=== PATIENT | male | born 1945 | race Hispanic/Latino ===

== ENCOUNTER 2017-06-03 10:47 | Emergency (ER) | payer MEDICARE ==
[~2017-06-03] VITALS: Ht 154.9 cm; Wt 68.0 kg
--- OUTSIDE RECORDS SUMMARY | 2017-06-03 10:50 | XMS REPORT | Clinical Summary ---
Author [facility] Organization [facility] Address Unknown Phone Unavailable Care Team Providers Care Diagnostic Medical Sonographer Name Role Phone PCP Unavailable Allergies No Known Allergies Current Medications Prescription Sig. Disp. Refills Start End Date Status Date donepezil (ARICEPT) 10 MG Take 10 mg by mouth Active tablet nightly. ondansetron (ZOFRAN-ODT) Take 1 tablet (4 mg 15 tablet 0 01/23/20 4 MG disintegrating total) by mouth every 8 17 17 tablet (eight) hours as needed for Nausea for up to 7 days. Active Problems Not on file Encounters Date Type Specialty Care Team Description 01/22/2017 Orders Only General Internal Medicine 01/21/2017 Emergency Emergency Medicine Jsoe Chowdary, Non- intractable vomiting - MD with nausea, unspecified 01/22/2017 vomiting type (Primary Dx) after 06/02/2016 Social History Tobacco Use Types Packs/Day Years Used Date Never Smoker Alcohol Use Drinks/Week oz/Week Comments No Sex Assigned at Date Recorded Not on file Last Filed Vital Signs Vital Sign Reading Time Taken Blood Pressure 155/68 01/22/2017 7:30 AM MILLING MACHINE SET UP OPERATOR Pulse 65 01/22/2017 7:30 AM MILLING MACHINE SET UP OPERATOR Temperature 36.6 C (97.8 F) 01/21/2017 9:40 PM MILLING MACHINE SET UP OPERATOR Respiratory Rate 18 01/21/2017 9:40 PM MILLING MACHINE SET UP OPERATOR Oxygen Saturation 94% 01/22/2017 7:30 AM MILLING MACHINE SET UP OPERATOR Inhaled Oxygen - - Concentration Weight 68 kg (150 lb) 01/21/2017 9:41 PM MILLING MACHINE SET UP OPERATOR Height - - Body Mass Index 28.36 01/21/2017 9:41 PM MILLING MACHINE SET UP OPERATOR Plan of Treatment Not on file Results * ED ECG Interpretation (01/22/2017 8:45 AM) Narrative Jose Chowdary MD 01/22/20178:45 AM ECG/EKG Interpretation Date/Time: 01/22/2017 1:04 AM Performed by: JOSE CHOWDARY Authorized by: JOSE CHOWDARY The ECG was interpreted by ED physician. The ECG is interpreted as sinus rhythm. Rate is bradycardic. Heart rate is 57 BPM. Abnormal conduction noted: 1st degree. T waves normal. Merrill is normal. Other findings include: LVH. Q-waves are present in lead(s) III, aVF, V5 and V6. * Urinalysis w/Microscopic - Clean Catch (01/22/2017 2:58 AM) Component Value Ref Range Color, UA Yellow Clarity, UA Hazy Specific Fortine, UA 1.016 1.001 - 1.035 pH, UA 8.5 (H) 5.0 - 8.0 Protein, UA 30 mg/dL (A) Negative Glucose, UA Negative Negative Ketones, UA Negative Negative Bilirubin, UA Negative Negative Blood, UA Negative Negative Nitrite, UA Negative Negative Leukocytes, UA Negative Negative Urobilinogen, UA 0.2 0.2 - 1.0 mg/dL RBC, UA 0 /HPF WBC, UA 0 /HPF Amorphous Crystals Moderate Specimen Source Urine, Voided Specimen Performing Laboratory Urine - Urine, [place] [address] * CT brain without IV contrast (01/22/2017 2:42 AM) Specimen Performing Laboratory [employer] Narrative FINAL REPORT CLINICAL HISTORY: Vomiting, elevated blood pressure, confusion COMPARISON: 03/22/2015 Multiple axial images of the brain were performed without IV contrast. This exam was performed according to our departmental dose-optimization program, which includes automated exposure control, adjustment of the mA and/or kV according to patient size and/or use of the iterative reconstruction technique. Intracranial hemorrhage: None. Brain parenchyma: Stable post surgical changes of right craniotomy and underlying right temporal encephalomalacia. Diffuse parenchymal volume loss. Bilateral subcortical and periventricular non-specific white matter hypodensities suggestive of microangiopathy. Ventricles, sulci and basal cisterns: Normal for age. Extra-axial spaces: Normal. Midline shift: None. Visualized vasculature: Normal. Cranium: Stable post craniotomy changes in the right temporoparietal region. Skullbase: No significant findings. Paranasal sinuses: No significant findings. IMPRESSION: No definite acute intracranial abnormality. There is no mass lesion, intracranial hemorrhage or CT evidence of acute stroke. Stable post surgical, microvascular and involutional changes. Please note that CT is insensitive in the detection of acute ischemia. Signed: Sandor Rowland MD Report Verified Date/Time:01/22/2017 02:38:42 Reading Location: [address] Reading Room Procedure Note Interface, External Ris In - 01/22/2017 4:35 AM MILLING MACHINE SET UP OPERATOR FINAL REPORT CLINICAL HISTORY: Vomiting, elevated blood pressure, confusion COMPARISON: 03/22/2015 Multiple axial images of the brain were performed without IV contrast. This exam was performed according to our departmental dose-optimization program, which includes automated exposure control, adjustment of the mA and/or kV according to patient size and/or use of the iterative reconstruction technique. Intracranial hemorrhage: None. Brain parenchyma: Stable post surgical changes of right craniotomy and underlying right temporal encephalomalacia. Diffuse parenchymal volume loss. Bilateral subcortical and periventricular non-specific white matter hypodensities suggestive of microangiopathy. Ventricles, sulci and basal cisterns: Normal for age. Extra-axial spaces: Normal. Midline shift: None. Visualized vasculature: Normal. Cranium: Stable post craniotomy changes in the right temporoparietal region. Skullbase: No significant findings. Paranasal sinuses: No significant findings. IMPRESSION: No definite acute intracranial abnormality. There is no mass lesion, intracranial hemorrhage or CT evidence of acute stroke. Stable post surgical, microvascular and involutional changes. Please note that CT is insensitive in the detection of acute ischemia. Signed: Sandor Rowland MD Report Verified Date/Time: 01/22/2017 02:38:42 Reading Location: [address] Reading Room * CT abdomen pelvis with IV contrast (01/22/2017 2:42 AM) Specimen Performing Laboratory [facility] Narrative FINAL REPORT CT, ABDOMEN \T\ PELVIS, WITH IV CONTRAST INDICATION: vomiting and generalized abdominal pain COMPARISON: None TECHNIQUE: Post contrast abdomen and pelvis CT.Coronal and sagittal reformatted images obtained. DOSE REDUCTION: Dose modulation, iterative reconstruction, and/or weight-based adjustment of the mA/kV was utilized to reduce the radiation dose to as low as reasonably achievable. FINDINGS: Lower thorax: Visible airspaces clear. No effusion. Liver: No parenchymal abnormality. Gallbladder and biliary tree: No ductal dilation or stones. Pancreas: No acute findings. Spleen: No acute findings Adrenal Glands: No acute findings. Kidneys and ureters: No obstructing stone. Subcentimeter cystic lesions bilaterally in kidneys too small to characterize. Bladder and reproductive organs: Unremarkable. Stomach and Duodenum: No significant findings. Small and large intestine: No small bowel obstruction. Collapsed colon. Distal diverticular changes without focal inflammatory signs.. Appendix: Normal. Major vascular structures: Tortuous aortic course with normal caliber. Scattered atherosclerotic calcifications. Peritoneum and retroperitoneum: No free air, fluid or adenopathy. Skeleton: No acute bony abnormality. Additional findings: None. IMPRESSION: No acute abnormality in the abdomen or pelvis to explain abdominal pain. Signed: JR Madison Robert MD Report Verified Date/Time:01/22/2017 03:08:53 Reading Location: [place] [id number] CT Body Reading Room Procedure Note Interface, External Ris In - 01/22/2017 4:35 AM MILLING MACHINE SET UP OPERATOR FINAL REPORT CT, ABDOMEN \T\ PELVIS, WITH IV CONTRAST INDICATION: vomiting and generalized abdominal pain COMPARISON: None TECHNIQUE: Post contrast abdomen and pelvis CT. Coronal and sagittal reformatted images obtained. DOSE REDUCTION: Dose modulation, iterative reconstruction, and/or weight-based adjustment of the mA/kV was utilized to reduce the radiation dose to as low as reasonably achievable. FINDINGS: Lower thorax: Visible airspaces clear. No effusion. Liver: No parenchymal abnormality. Gallbladder and biliary tree: No ductal dilation or stones. Pancreas: No acute findings. Spleen: No acute findings Adrenal Glands: No acute findings. Kidneys and ureters: No obstructing stone. Subcentimeter cystic lesions bilaterally in kidneys too small to characterize. Bladder and reproductive organs: Unremarkable. Stomach and Duodenum: No significant findings. Small and large intestine: No small bowel obstruction. Collapsed colon. Distal diverticular changes without focal inflammatory signs.. Appendix: Normal. Major vascular structures: Tortuous aortic course with normal caliber. Scattered atherosclerotic calcifications. Peritoneum and retroperitoneum: No free air, fluid or adenopathy. Skeleton: No acute bony abnormality. Additional findings: None. IMPRESSION: No acute abnormality in the abdomen or pelvis to explain abdominal pain. Signed: JR Gricelda, Kendall MURRAY Report Verified Date/Time: 01/22/2017 03:08:53 Reading Location: [facility] C013Y CT Body Reading Room * ECG 12 lead (01/22/2017 1:04 AM) Specimen Performing Laboratory [employer] Narrative Ventricular Rate 57 BPM Atrial Rate 57 BPM P-R Interval 224 ms QRS Duration 114 ms Q-T Interval 434 ms QTC Calculation(Bazett) 422 ms P Merrill 47 degrees R Merrill 49 degrees T Merrill 28 degrees Sinus bradycardia with 1st degree A-V block Minimal voltage criteria for LVH, may be normal variant Borderline ECG No previous ECGs available Confirmed by Cesar Dash ([id number]) on 01/22/2017 7:59:49 AM Procedure Note Interface, External Ris In - 01/22/2017 8:00 AM MILLING MACHINE SET UP OPERATOR Ventricular Rate 57 BPM Atrial Rate 57 BPM P-R Interval 224 ms QRS Duration 114 ms Q-T Interval 434 ms QTC Calculation(Bazett) 422 ms P Merrill 47 degrees R Merrill 49 degrees T Merrill 28 degrees Sinus bradycardia with 1st degree A-V block Minimal voltage criteria for LVH, may be normal variant Borderline ECG No previous ECGs available Confirmed by Cesar Dash ([id number]) on 01/22/2017 7:59:49 AM * CBC with platelet count + automated diff (01/22/2017 12:56 AM) Component Value Ref Range WBC 7.3 3.5 - 10.5 K/ L RBC 4.26 (L) 4.63 - 6.08 M/ L Hemoglobin 12.9 (L) 13.7 - 17.5 GM/DL Hematocrit 39.0 (L) 40.1 - 51.0 % MCV 91.5 79.0 - 92.2 fL MCH 30.3 25.7 - 32.2 pg MCHC 33.1 32.3 - 36.5 GM/DL RDW 12.7 11.6 - 14.4 % Platelets 147 (L) 150 - 450 K/CU MM MPV 10.8 9.4 - 12.4 fL nRBC 0 0 - 0 /100 WBC % Neutros 84 % % Lymphs 11 % % Monos 3 % % Eos 0 % % Baso 0 % # Neutros 6.19 (H) 1.78 - 5.38 K/ L # Lymphs 0.82 (L) 1.32 - 3.57 K/ L # Monos 0.24 (L) 0.30 - 0.82 K/ L # Eos 0.00 (L) 0.04 - 0.54 K/ L # Baso 0.03 0.01 - 0.08 K/ L Immature 1 0 - 1 % Granulocytes-Relative Specimen Performing Laboratory Blood - Line, [place] [address] * Troponin I (not available at [facility]) (01/22/2017 12:56 AM) Component Value Ref Range Troponin I <0.01 0.00 - 0.03 ng/mL Specimen Performing Laboratory Blood - Line, [place] [address] Narrative Troponin I (TnI) levels must be interpreted in the context of the presenting symptoms and the clinical findings. Elevated TnI levels indicate myocardial damage, but are not specific for ischemic heart disease. Elevated TnI levels are seen in patients with other cardiac conditions (including myocarditis and congestive heart failure), and slight TnI elevations occur in patients with other conditions, including sepsis, renal failure, acidosis, acute neurological disease, and persistent tachyarrhythmia. * CBC with platelet count + automated diff (01/22/2017 12:56 AM) Specimen Performing Laboratory Blood Narrative The following orders were created for panel order CBC with platelet count + automated diff. Procedure Abnormality Status --------- - ------ CBC with platelet count ...[[id number]]AbnormalFinal result Please view results for these tests on the individual orders. * Comprehensive metabolic panel (01/22/2017 12:56 AM) Component Value Ref Range Protein, Total 7.6 6.0 - 8.3 gm/dL Albumin 4.5 3.5 - 5.0 g/dL Alkaline Phosphatase 64 40 - 150 U/L Total Bilirubin 0.4 0.2 - 1.2 mg/dL Sodium 140 136 - 145 meq/L Potassium 4.2 3.5 - 5.1 meq/L Chloride 104 98 - 107 meq/L CO2 28 22 - 29 meq/L BUN 11 7 - 21 mg/dL Creatinine 0.80 0.57 - 1.25 mg/dL Glucose 150 (H) 70 - 105 mg/dL Calcium 9.4 8.4 - 10.2 mg/dL AST 16 5 - 34 U/L ALT 10 6 - 55 U/L EGFR 95Comment: ESTIMATED GFR IS NOT ACCURATE mL/min/1.73 sq m CREATININE CLEARANCE IN PREDICTING GLOMERULAR FILTRATION RATE. ESTIMATED GFR IS NOT APPLICABLE FOR DIALYSIS PATIENTS. Specimen Performing Laboratory Blood - Line, Venous [facility] [address] [address] after 06/02/2016
--- OUTSIDE RECORDS SUMMARY | 2017-06-03 10:50 | XMS REPORT ---
Author Author [facility] Address Unknown Phone Unavailable Care Team Providers Care Cereal Chemist Name Role Phone JOSE BRAUN Unavailable Unavailable Problems This patient has no known problems. Allergies, Adverse Reactions, Alerts This patient has no known allergies or adverse reactions. Medications This patient has no known medications. Results Test Description Test Time Test Comments Text Results Atomic Results Result Comments URINALYSIS W/ MICROSCOPIC 2017-01-22 03:19:00 COLOR (BEAKER) (test brli=130) Yellow CLARITY (BEAKER) (test cnqj=492) Hazy SPECIFIC GRAVITY UA (BEAKER) (test wkkp=423) 1.016 1.001-1.035 PH UA (BEAKER) (test dkjm=395) 8.5 5.0-8.0 PROTEIN UA (BEAKER) (test kknh=044) 30 mg/dL Negative GLUCOSE UA (BEAKER) (test jsgo=336) Negative Negative KETONES UA (BEAKER) (test itra=802) Negative Negative BILIRUBIN UA (BEAKER) (test ymst=765) Negative Negative BLOOD UA (BEAKER) (test nmga=465) Negative Negative NITRITE UA (BEAKER) (test bnbw=353) Negative Negative LEUKOCYTE ESTERASE UA (BEAKER) (test sbni=955) Negative Negative UROBILINOGEN UA (BEAKER) (test kcma=782) 0.2 mg/dL 0.2-1.0 RBC UA (BEAKER) (test uegq=472) 0 /HPF WBC UA (BEAKER) (test lrwv=723) 0 /HPF AMORPHOUS CRYSTALS (BEAKER) (test mfnf=0193) Moderate SOURCE(BEAKER) (test yrtc=7996) Urine, Voided CT, [id number] 03:08:00FINAL REPORT CT, ABDOMEN \T \ PELVIS, WITH IV CONTRAST INDICATION: vomiting and generalized abdominal pain COMPARISON: None TECHNIQUE:Post contrast abdomen and pelvis CT. Coronal and sagittal reformatted images obtained. DOSE REDUCTION: Dose modulation, iterative reconstruction, and/or weight-based adjustment of the mA/kV was utilized to reduce the radiation dose to as low as reasonably achievable. FINDINGS: Lower thorax: Visible airspaces clear. No effusion. Liver: No parenchymal abnormality.Gallbladder and biliary tree: No ductal dilation or stones.Pancreas: No acute findings.Spleen: No acute findingsAdrenal Glands: No acute findings.Kidneys and ureters: No obstructing stone. Subcentimeter cystic lesions bilaterally in kidneys too small to characterize.Bladder and reproductive organs: Unremarkable. Stomach and Duodenum: No significant findings.Small and large intestine: No small bowel obstruction. Collapsed colon. Distal diverticular changes without focal inflammatory signs..Appendix: Normal. Major vascular structures: Tortuous aortic course with normal caliber. Scattered atherosclerotic calcifications.Peritoneum and retroperitoneum: No free air, fluid or adenopathy. Skeleton: No acute bony abnormality.Additional findings: None. IMPRESSION: No acute abnormality in the abdomen or pelvis to explain abdominal pain. Signed: JR Madison Robert MDReport Verified Date/Time: 01/22/2017 03:08:53 Reading Location: [address] Body Reading Room ONIN [id number] 02:38:00* Test Item Value Reference Range Comments TROPONIN I (BEAKER) (test bnoh=609) < ng/mL 0.00-0.03 Troponin I (TnI) levels must be interpreted [...] failure, acidosis, acute neurological disease, and persistent tachyarrhythmia.CT, BRAIN, WITHOUT [id number] 02 :38:00FINAL REPORT CLINICAL HISTORY: Vomiting, elevated blood pressure, [...] detection of acute ischemia. Signed: Sandor Rowland MDReport Verified Date/Time: 01/22/2017 02:38:42 Reading Location : [address] Reading Room REHENSIVE METABOLIC [id number] 01: 26:00* Test Item Value Reference Range Comments TOTAL PROTEIN (BEAKER) (test tchz=752) 7.6 gm/dL 6.0-8.3 ALBUMIN (BEAKER) (test rhsr=4792) 4.5 g/dL 3.5-5.0 ALKALINE PHOSPHATASE (BEAKER) (test wpdk=775) 64 U/L 40-150 BILIRUBIN TOTAL (BEAKER) (test pivo=277) 0.4 mg/dL 0.2-1.2 SODIUM (BEAKER) (test tkfx=554) 140 meq/L 136-145 POTASSIUM (BEAKER) (test ckcx=215) 4.2 meq/L 3.5-5.1 CHLORIDE (BEAKER) (test fvwh=065) 104 meq/L 98-107 CO2 (BEAKER) (test qrkv=669) 28 meq/L 22-29 BLOOD UREA NITROGEN (BEAKER) (test vash=943) 11 mg/dL 7-21 CREATININE (BEAKER) (test sokx=277) 0.80 mg/dL 0.57-1.25 GLUCOSE RANDOM (BEAKER) (test blth=413) 150 mg/dL 70-105 CALCIUM (BEAKER) (test pvvh=818) 9.4 mg/dL 8.4-10.2 AST (SGOT) (BEAKER) (test rlry=610) 16 U/L 5-34 ALT (SGPT) (BEAKER) (test gxeb=364) 10 U/L 6-55 EGFR (BEAKER) (test ugqn=9657) 95 mL/min/1.73 sq m ESTIMATED GFR IS NOT ACCURATE CREATININE CLEARANCE IN PREDICTING GLOMERULAR FILTRATION RATE. ESTIMATED GFR IS NOT APPLICABLE FOR DIALYSIS PATIENTS. CBC W/PLT COUNT & AUTO [id number] 01:12:00* Test Item Value Reference Range Comments WHITE BLOOD CELL COUNT (BEAKER) (test slnm=587) 7.3 K/ L 3.5-10.5 RED BLOOD CELL COUNT (BEAKER) (test hmvt=786) 4.26 M/ L 4.63-6.08 HEMOGLOBIN (BEAKER) (test satf=064) 12.9 GM/DL 13.7-17.5 HEMATOCRIT (BEAKER) (test jumn=200) 39.0 % 40.1-51.0 MEAN CORPUSCULAR VOLUME (BEAKER) (test xsan=962) 91.5 fL 79.0-92.2 MEAN CORPUSCULAR HEMOGLOBIN (BEAKER) (test lnvc=214) 30.3 pg 25.7-32.2 MEAN CORPUSCULAR HEMOGLOBIN CONC (BEAKER) (test fcmr=548) 33.1 GM/DL 32.3- 36.5 RED CELL DISTRIBUTION WIDTH (BEAKER) (test feci=386) 12.7 % 11.6-14.4 PLATELET COUNT (BEAKER) (test qfge=553) 147 K/CU MM 150-450 MEAN PLATELET VOLUME (BEAKER) (test jebc=247) 10.8 fL 9.4-12.4 NUCLEATED RED BLOOD CELLS (BEAKER) (test bfrt=761) 0 /100 WBC 0-0 NEUTROPHILS RELATIVE PERCENT (BEAKER) (test bogp=493) 84 % LYMPHOCYTES RELATIVE PERCENT (BEAKER) (test wuau=141) 11 % MONOCYTES RELATIVE PERCENT (BEAKER) (test uank=946) 3 % EOSINOPHILS RELATIVE PERCENT (BEAKER) (test jxbm=159) 0 % BASOPHILS RELATIVE PERCENT (BEAKER) (test ndwn=348) 0 % NEUTROPHILS ABSOLUTE COUNT (BEAKER) (test menp=101) 6.19 K/ L 1.78-5.38 LYMPHOCYTES ABSOLUTE COUNT (BEAKER) (test xfub=021) 0.82 K/ L 1.32-3.57 MONOCYTES ABSOLUTE COUNT (BEAKER) (test pjjf=400) 0.24 K/ L 0.30-0.82 EOSINOPHILS ABSOLUTE COUNT (BEAKER) (test uncz=418) 0.00 K/ L 0.04-0.54 BASOPHILS ABSOLUTE COUNT (BEAKER) (test xnnw=868) 0.03 K/ L 0.01-0.08 IMMATURE GRANULOCYTES-RELATIVE PERCENT (BEAKER) (test pstr=9566) 1 % 0-1
[2017-06-03 12:00] VITALS: BP 120/74
== END 2017-06-03 12:05 | disposition home or self-care (01) ==
LOC: FSED 10:47
DX: R41.82 Altered mental status, unspecified (principal); T43.595A Adverse effect of other antipsychotics and neuroleptics, initial encounter; F03.90 Unspecified dementia, unspecified severity, without behavioral disturbance, psychotic disturbance, mood disturbance, and anxiety; E03.9 Hypothyroidism, unspecified
CPT/HCPCS: 80053; 81003; 85025; 99283